=== PATIENT | female | born 1990 | race Asian ===

== ENCOUNTER 2017-02-06 09:24 | Emergency (ER) | payer MEDICAID ==
[2017-02-06 10:04] LABS: % BASOPHILS 0.1 % (0.0-2.0); % EOSINOPHILS 0.3 % (0.0-5.0); % LYMPHOCYTES 12.3 % (20.0-50.0); % MONOCYTES 7.3 % (2.0-10.0); HEMOGLOBIN 13.4 gm/dL (12-16); MEAN CORPUSCULAR HEMOGLOBIN 28.1 pg (27.0-31.0); MEAN CORPUSCULAR HGB CONC 34.3 pg (28.0-36.0); MEAN PLATELET VOLUME 9.4 fl; NEUTROPHILE ABSOLUTE 7.3 Th/cmm (1.8-8.0); PLATELET COUNT 187 Th/cmm (150-400); RED BLOOD COUNT 4.76 Mil/cmm (3.80-5.10); RED CELL DISTRIBUTION WIDTH 11.8 % (11.5-20.0); WHITE BLOOD COUNT 9.1 Th/cmm (4.8-10.8)
[2017-02-06 10:10] LABS: URINE BILIRUBIN NEGATIVE (NEGATIVE); URINE BLOOD TRACE (NEGATIVE); URINE GLUCOSE (UA) NEGATIVE (NEGATIVE); URINE KETONE NEGATIVE (NEGATIVE); URINE PROTEIN NEGATIVE (NEGATIVE); URINE UROBILINOGEN 0.2 E.U./dL (0.2 - 1.0)
[2017-02-06 10:14] LABS: URINE COLOR YELLOW
[2017-02-06 10:20] LABS: URINE BACTERIA FEW /hpf (NONE SEEN); URINE EPITHELIAL CELLS MODERATE /lpf (FEW); URINE WBC 0-2 /hpf (0-5)
[2017-02-06 10:30] LABS: ALB/GLOB RATIO 1.4 (1.0-1.8); ANION GAP 10.8 (7.0-16.0); BILIRUBIN,TOTAL 0.8 mg/dL (0.3-1.0); CARBON DIOXIDE 21.7 mEq/L (21.0-31.0); CREATININE - SERUM 1.6 mg/dL (0.6-1.2); POTASSIUM SERUM 4.5 mEq/L (3.5-5.1)
[2017-02-06] MEDS ORDERED: Tuberculin 5 TU/0.1 mL UD ID ONE (11:07)
--- NOTE | 2017-02-06 12:00 | Diagnostic Imaging Report ---
CT scan of the brain without contrast History: Headache Total DLP equals 561 CTDI equals 30.5 Axial sections were obtained from the base of the skull to the vertex. There is a normal ventricular system size. No focal parenchymal lesions are seen. No evidence of any mass effect or shift of midline structures. No extra-axial masses or abnormal fluid collections. Impression: Negative examination
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
== END 2017-02-06 12:37 | disposition home or self-care (01) ==
LOC: ER 09:24
DX: G43.909 Migraine, unspecified, not intractable, without status migrainosus (principal); R19.7 Diarrhea, unspecified
CPT/HCPCS: 36415-UA; 70450-TC; 80053-TC; 81001-TC; 81025-TC; 83735-TC; 85025-TC